=== PATIENT | female | born 1965 | race African-American/Black ===

== ENCOUNTER 2023-11-24 13:35 | Emergency (ER) | payer OTHER ==
[~2023-11-24] VITALS: Ht 172.7 cm; Wt 64.0 kg
[2023-11-24 13:46] VITALS: TEMP 98.4; O2SAT 99
[2023-11-24 14:33] LABS: BASOPHILS % 0.8 % (0.0-2.0); EOSINOPHILS % 2.2 % (0.0-5.0); HEMATOCRIT. 39.5 % (36.0-48.0); HEMOGLOBIN. 12.7 g/dL (12.0-16.0); LYMPHOCYTES % 25.5 % (20.0-50.0); MEAN CORPUSCULAR HEMOGLOBIN 28.7 pg (28.0-32.0); MEAN CORPUSCULAR HGB CONC 32.2 g/dL (31.0-37.0); MEAN CORPUSCULAR VOLUME 89.2 fL (81.0-99.0); MEAN PLATELET VOLUME 8.6 fl (7.4-10.4); MONOCYTES % 6.5 % (2.0-8.0); PLATELET 191 x1000/uL (130-400); RED BLOOD CELL COUNT 4.43 mill/uL (4.2-5.4); WHITE BLOOD COUNT 4.9 x1000/uL (4.5-11.0)
[2023-11-24 14:39] LABS: CHLORIDE 108 mEq/L (98-107); POTASSIUM 4.1 mEq/L (3.5-5.1); SODIUM 141 mEq/L (136-145)
[2023-11-24 14:40] LABS: CALCIUM 9.7 mg/dL (8.7-10.4); CARBON DIOXIDE 30 mEq/L (21-32)
[2023-11-24 14:41] LABS: HCG SCREEN NEGATIVE
[2023-11-24 14:45] LABS: CREATININE 0.7 mg/dL (0.6-1.0); GLUCOSE 85 mg/dL (70-105); UREA NITROGEN BLOOD 9 mg/dL (9-23)
[2023-11-24 15:00] VITALS: BP 126/70; PULSE 75; RESP 18
== END 2023-11-24 16:18 | disposition home or self-care (01) ==
LOC: EDBD 13:35 → ER 13:35
DX: R40.0 Somnolence (principal)
CPT/HCPCS: 80048; 84703; 85025; 36415; 99283; Z7610 ×3